=== PATIENT | male | born 1985 | race Caucasian/White ===

== ENCOUNTER 2024-06-11 21:42 | Emergency (ER) | payer OTHER ==
[2024-06-11 22:06] VITALS: RESP 18; BMI 27.4
[2024-06-11] MEDS ORDERED: METOCLOPRAMIDE HCL INJECTION 10 MG/2 ML VIAL ONE (22:40)
[2024-06-11] MEDS ORDERED: ACETAMINOPHEN INJECTION 100 ML ONE (22:41)
[2024-06-11] MEDS: SODIUM CHLORIDE 0.9% 1000 ML INFUS.BAG IV ONE (22:51)
[2024-06-11] MEDS: METOCLOPRAMIDE HCL INJECTION 10 MG/2 ML VIAL IVPB ONE (22:52)
[2024-06-11] MEDS: ACETAMINOPHEN 1000 MG/100 ML BAG IVPB ONE (22:52)
[2024-06-12 00:38] VITALS: BP 118/73; PULSE 67; TEMP 97.7
== END 2024-06-12 02:21 | disposition home or self-care (01) ==
LOC: JER 21:42
PROC: 3E033NZ Introduction of Analgesics, Hypnotics, Sedatives into Peripheral Vein, Percutaneous Approach (ICD-10-PCS; principal; 2024-06-11)
PROC: 3E033GC Introduction of Other Therapeutic Substance into Peripheral Vein, Percutaneous Approach (ICD-10-PCS; 2024-06-11)
DX: R51.9 Headache, unspecified (principal)
CPT/HCPCS: 99284-25; J0131